=== PATIENT | male | born 1985 | race Caucasian/White ===

== ENCOUNTER 2025-06-06 14:01 | Inpatient (IN) | payer OTHER ==
[~2025-06-06] VITALS: Ht 167.6 cm; Wt 90.0 kg
[2025-06-06 15:26] LABS: PLATELET COUNT (AUTO) 270 K/uL (150-450); RED BLOOD CELL COUNT(AUTO) 5.11 MIL/uL (4.50-5.90); RED CELL DISTRIBUTION WIDTH 15.6 % (11.5-14.5); WHITE BLOOD COUNT (AUTO) 8.4 K/uL (4.5-11.0)
[2025-06-06 15:35] LABS: CALCIUM, TOTAL 8.5 mg/dL (8.8-10.5); CREATININE 0.71 mg/dL (0.60-1.30); GLOMERULAR FILTR. RATE CALC > 60 mL/min (>60); GLUCOSE,RANDOM 77 mg/dL (70-110); SODIUM SERUM 142 mmol/L (136-145); UREA NITROGEN, BLOOD 13 mg/dL (7-18)
[2025-06-06] MEDS ORDERED: DICYCLOMINE HCL 10 MG CAPSULE PO PRN (16:15)
[2025-06-06] MEDS ORDERED: ACETAMINOPHEN 325 MG TABLET PO PRN ×2 (16:15)
[2025-06-06] MEDS ORDERED: MAGNESIUM HYDROXIDE SUSPENSION 30 ML UDCUP PO PRN (16:15)
[2025-06-06] MEDS ORDERED: BISACODYL 10 MG RECTAL RECTAL SUPPOSITORY PR PRN (16:15)
[2025-06-06] MEDS ORDERED: PROMETHAZINE HCL 25 MG TABLET PO PRN (16:15)
[2025-06-06] MEDS ORDERED: ONDANSETRON HCL 4 MG/2 ML VIAL IVP PRN (16:15)
[2025-06-06] MEDS ORDERED: MAG HYDROX/ALUMINUM HYD/SIMETH ES 30 ML SUSPENSION UDCUP PO PRN (16:15)
[2025-06-06] MEDS ORDERED: ALBUTEROL SULFATE 2.5 MG/0.5 ML NEB SOLUTION NEB PRN (16:15)
[2025-06-06] MEDS ORDERED: BACLOFEN 10 MG TABLET PO PRN (16:15)
[2025-06-06] MEDS ORDERED: LOPERAMIDE HCL 2 MG/15 ML SUSPENSION UDCUP PO PRN (16:15)
[2025-06-06] MEDS ORDERED: IPRATROPIUM BROMIDE 0.5 MG/2.5 ML NEB SOLUTION NEB PRN (16:15)
[2025-06-06] MEDS ORDERED: ZOLPIDEM TARTRATE 5 MG TABLET PO PRN (16:15)
[2025-06-06] MEDS ORDERED: IBUPROFEN 600 MG TABLET PO PRN (16:15)
[2025-06-06 17:03] VITALS: BP 116/83; PULSE 64; RESP 18; TEMP 97.9; O2SAT 100
[2025-06-06] MEDS: SODIUM CHLORIDE 0.45% 1,000 ML IV SCH (17:29)
[2025-06-06 18:36] LABS: APPEARANCE,URINE CLEAR (CLEAR); GLUCOSE, URINE (UA) TRACE mg/dL (NEGATIVE); LEUKOCYTE ESTERASE ,URINE NEGATIVE (NEGATIVE); NITRATE,URINE NEGATIVE (NEGATIVE); OCCULT BLOOD,URINE NEGATIVE (NEGATIVE); PH,URINE DRUG SCREEN 6.5 (5.0-8.0); SPECIFIC GRAVITIY, URINE 1.020 (1.003-1.030)
[2025-06-06 18:45] LABS: ALCOHOL, URINE DRUG SCREEN NEGATIVE (NEGATIVE); AMPHET/METH SCREEN,URINE POSITIVE (NEGATIVE); BARBITURATE SCREEN, URINE NEGATIVE (NEGATIVE); CANNABINOID SCREEN,URINE NEGATIVE (NEGATIVE); COCAINE SCREEN,URINE NEGATIVE (NEGATIVE); METHADONE SCREEN, URINE NEGATIVE (NEGATIVE)
[2025-06-06 19:42] VITALS: BP 123/83; PULSE 73; RESP 18; TEMP 97.9; O2SAT 100
[2025-06-06] MEDS: DOCUSATE SODIUM 100 MG CAPSULE PO SCH (20:08)
[2025-06-07] MEDS: HEPARIN SODIUM,PORCINE 5,000 UNITS/ML VIAL SQ SCH (00:03)
[2025-06-07 04:32] VITALS: BP 118/83; PULSE 59; RESP 18; TEMP 98.2; O2SAT 99
[2025-06-07 08:00] VITALS: BP 116/86; PULSE 63; RESP 18; TEMP 98.1; O2SAT 98
[2025-06-07] MEDS: PANTOPRAZOLE SODIUM 40 MG/VIAL IVP SCH (08:17)
[2025-06-07 20:40] VITALS: BP 130/83; PULSE 72; RESP 18; TEMP 98.2; O2SAT 96
[2025-06-08 05:42] VITALS: BP 125/85; PULSE 69; RESP 18; TEMP 98.1; O2SAT 97
[2025-06-08 08:46] VITALS: BP 116/89; PULSE 73; RESP 20; TEMP 97.9; O2SAT 99
== END 2025-06-08 16:55 | DRG 897 ==
LOC: EMS 14:04 → EDH 15:11 → UNDOADMIN 15:11 → 6S 16:55
PROVIDERS: ADMIT Hospitalist; ATTEND Hospitalist
DX: F11.13 Opioid abuse with withdrawal (principal)
CPT/HCPCS: 80048; 80307; 81003; 85025; 96374; 99285; J1644; J2470

== ENCOUNTER 2025-06-09 15:44 | Inpatient (IN) | payer OTHER ==
[~2025-06-09] VITALS: Ht 170.2 cm; Wt 75.0 kg
[2025-06-09 16:24] LABS: PLATELET COUNT (AUTO) 267 K/uL (150-450); RED BLOOD CELL COUNT(AUTO) 5.26 MIL/uL (4.50-5.90); RED CELL DISTRIBUTION WIDTH 15.3 % (11.5-14.5); WHITE BLOOD COUNT (AUTO) 8.9 K/uL (4.5-11.0)
[2025-06-09 16:33] LABS: CALCIUM, TOTAL 8.7 mg/dL (8.8-10.5); CREATININE 0.70 mg/dL (0.60-1.30); GLOMERULAR FILTR. RATE CALC > 60 mL/min (>60); GLUCOSE,RANDOM 113 mg/dL (70-110); SODIUM SERUM 136 mmol/L (136-145); UREA NITROGEN, BLOOD 8 mg/dL (7-18)
[2025-06-09 16:39] LABS: APPEARANCE,URINE CLEAR (CLEAR); GLUCOSE, URINE (UA) NEGATIVE (NEGATIVE); LEUKOCYTE ESTERASE ,URINE NEGATIVE (NEGATIVE); NITRATE,URINE NEGATIVE (NEGATIVE); OCCULT BLOOD,URINE NEGATIVE (NEGATIVE); PH,URINE DRUG SCREEN 7.0 (5.0-8.0); SPECIFIC GRAVITIY, URINE 1.016 (1.003-1.030)
[2025-06-09 16:55] LABS: ALCOHOL, URINE DRUG SCREEN NEGATIVE (NEGATIVE); AMPHET/METH SCREEN,URINE NEGATIVE (NEGATIVE); BARBITURATE SCREEN, URINE NEGATIVE (NEGATIVE); CANNABINOID SCREEN,URINE NEGATIVE (NEGATIVE); COCAINE SCREEN,URINE NEGATIVE (NEGATIVE); METHADONE SCREEN, URINE NEGATIVE (NEGATIVE); SQUAMOUS EPITHELIAL CELL,UR Rare /LPF (None Seen)
[2025-06-09] MEDS ORDERED: NALOXONE HCL 1 MG/ML 2 ML SYRINGE IVP PRN (17:45)
[2025-06-09] MEDS ORDERED: ACETAMINOPHEN 325 MG TABLET PO PRN (17:45)
[2025-06-09] MEDS ORDERED: ONDANSETRON HCL 4 MG/2 ML VIAL IVP PRN (17:45)
[2025-06-09 19:35] VITALS: BP 134/89; PULSE 69; RESP 18; TEMP 99; O2SAT 98
[2025-06-09] MEDS: HEPARIN SODIUM,PORCINE 5,000 UNITS/ML VIAL SQ SCH (23:12)
[2025-06-10 04:15] VITALS: BP 122/72; PULSE 61; RESP 18; TEMP 97.9; O2SAT 98
[2025-06-10 08:23] VITALS: BP 121/77; PULSE 64; RESP 18; TEMP 98.1; O2SAT 99
[2025-06-10 10:08] LABS: PLATELET COUNT (AUTO) 242 K/uL (150-450); RED BLOOD CELL COUNT(AUTO) 4.99 MIL/uL (4.50-5.90); RED CELL DISTRIBUTION WIDTH 15.3 % (11.5-14.5); WHITE BLOOD COUNT (AUTO) 7.4 K/uL (4.5-11.0)
[2025-06-10 10:18] LABS: CALCIUM, TOTAL 8.5 mg/dL (8.8-10.5); CREATININE 0.84 mg/dL (0.60-1.30); GLOMERULAR FILTR. RATE CALC > 60 mL/min (>60); GLUCOSE,RANDOM 167 mg/dL (70-110); SODIUM SERUM 136 mmol/L (136-145); UREA NITROGEN, BLOOD 10 mg/dL (7-18)
[2025-06-10] MEDS: POTASSIUM CHLORIDE 10% 40 MEQ/30 ML LIQUID UDCUP PO ONE (12:05)
== END 2025-06-10 19:54 | DRG 641 ==
LOC: EMS 15:51 → EDH 17:41 → 6N 18:40
PROVIDERS: ADMIT Internal Medicine; ATTEND Internal Medicine
DX: E86.0 Dehydration (principal); F11.20 Opioid dependence, uncomplicated; E87.3 Alkalosis; F43.21 Adjustment disorder with depressed mood
CPT/HCPCS: 71045; 74176; 80048; 80307; 81001; 83735; 85025; 93005; 99285; G0480; J1644; J2312; 36415-L1; 36415-TC